=== PATIENT | male | born 1990 | race Two or more races ===

== ENCOUNTER 2022-10-30 12:25 | Emergency (ER) | payer MEDICAID ==
[~2022-10-30] VITALS: Ht 182.9 cm; Wt 136.1 kg
[2022-10-30 12:39] VITALS: BP 113/67
== END 2022-10-30 15:00 | disposition home or self-care (01) ==
LOC: ER 12:32
DX: S60.031A Contusion of right middle finger without damage to nail, initial encounter (principal); S60.041A Contusion of right ring finger without damage to nail, initial encounter; S60.051A Contusion of right little finger without damage to nail, initial encounter; W19.XXXA Unspecified fall, initial encounter; Y93.89 Activity, other specified; Y92.89 Other specified places as the place of occurrence of the external cause; Y99.8 Other external cause status
CPT/HCPCS: 73130-TC